=== PATIENT | female | born 1975 | race Caucasian/White ===

== ENCOUNTER → 2016-12-02 | Outpatient (CLI) | payer OTHER ==
[~2016-12-02] MED LIST: GADOBUTROL 10 ML VIAL IVP ONE
== END ==
LOC: FIMAGING 15:19
PROVIDERS: ATTEND Neurological Surgery
DX: D32.9 Benign neoplasm of meninges, unspecified (principal)
CPT/HCPCS: A9585

== ENCOUNTER → 2017-04-28 | Outpatient (CLI) | payer OTHER | LOC: CIMAGING 08:48 | PROVIDERS: ATTEND Physician Assistant Medical | DX: K82.4 Cholesterolosis of gallbladder (principal); K76.0 Fatty (change of) liver, not elsewhere classified | CPT/HCPCS: 76705-PO ==

== ENCOUNTER 2017-07-21 12:11 | Emergency (ER) | payer OTHER ==
[2017-07-21 12:18] VITALS: TEMP 98.4
--- NOTE | 2017-07-21 12:43 | CPEKG ---
Heart Rate: 68 RR Interval: 882 P-R Interval: 164 QRSD Interval: 82 QT Interval: 412 QTC Interval: 439 P Alton: 20 QRS [place]: 32 T Wave Al[place]: 5 EKG Severity - NORMAL ECG - EKG Impression: SINUS RHYTHM EKG Impression: T-wave inversions inferiorly similar to previous EKG Electronically Signed By: Young Lynn 21-Jul-2017 13:06:53
--- NOTE | 2017-07-21 13:03 | EDPHY ---
H & P Time Seen by Provider: 07/21/17 12:51 Past Medical/Surgical History: CHIEF COMPLAINT: Chest pain HISTORY OF PRESENT ILLNESS: The patient is a 42-year-old female with no significant past medical history comes to the emergency department complaining of chest tightness over her left breast for the last week. She states that it has been relatively constant however she does not always notice it when she is busy with other things. It is not associated with exertion. She denies shortness of breath but states that she occasionally remembers to take a deeper breath than usual. She did travel to [facility] 1 month ago but did not have symptoms until 1 week ago. She did also travel to [place] 2 weeks ago. No leg pain. No recent infection or illness. She is concerned because her mom had a heart attack at age 50 and then of a brain aneurysm in her 60s. Patient denies headache or back pain. She states that she does suffer from peptic ulcer disease and had been on Prilosec for some time but no longer takes it. She denies nausea vomiting. She denies diaphoresis. No lightheadedness. REVIEW OF SYSTEMS: Constitutional: denies: chills, fever, recent illness, recent injury EENTM: denies: blurred vision, double vision, nose congestion Respiratory: denies: cough, shortness of breath Cardiac: See HPI Gastrointestinal/Abdominal: denies: abdominal pain, diarrhea, nausea, vomiting, blood streaked stools Genitourinary: denies: dysuria, frequency, hematuria, pain Musculoskeletal: denies: joint pain, muscle pain Skin: denies: lesions, rash, jaundice, bruising Neurological: denies: headache, numbness, paresthesia, tingling, dizziness, weakness Hematologic/Lymphatic: denies: blood clots, easy bleeding, easy bruising Immunologic/allergic: denies: HIV/AIDS, transplant EXAM: GENERAL: Well-appearing, well-nourished and in no acute distress. HEAD: Atraumatic, normocephalic. EYES: Pupils equal round and reactive to light, extraocular movements intact, sclera anicteric, conjunctiva are normal. ENT: TMs normal, nares patent, oropharynx clear without exudates. Moist mucous membranes. NECK: Normal range of motion, supple without lymphadenopathy or JVD. LUNGS: Breath sounds clear to auscultation bilaterally and equal. No wheezes rales or rhonchi. HEART: Regular rate and rhythm without murmurs, rubs or gallops. ABDOMEN: Soft, nontender, normoactive bowel sounds. No guarding, no rebound. No masses appreciated. BACK: No CVA tenderness, no spinal tenderness, step-offs or deformities EXTREMITIES: Normal range of motion, no pitting or edema. No clubbing or cyanosis. NEUROLOGICAL: Cranial nerves II through XII grossly intact. Normal speech, normal gait. 5/5 strength, normal movement in all extremities, normal sensation PSYCH: Normal mood, normal affect. SKIN: Warm, dry, normal turgor, no visible rashes or lesions. Smoking Status: Never smoked Constitutional: Initial Vital Signs Temperature (C) 36.9 C 07/21/17 12:14 Heart Rate 84 07/21/17 12:14 Respiratory Rate 18 07/21/17 12:14 Blood Pressure 128/99 H 07/21/17 12:14 O2 Sat (%) 99 07/21/17 12:14 O2 Delivery Mode Room Air Allergies/Adverse Reactions: No Known Allergies Allergy (Unverified 09/01/13 20:06) Home Medications: Medication Instructions Recorded AZITHROMYCIN [Z-PACK] 250 mg PO DAILY 04/04/15 Ondansetron Odt [Zofran Odt] 4 mg PO Q4PRN PRN #10 tab 04/04/15 oxyCODONE/APAP 5/325 [Percocet 1 tab PO Q6 #10 tab 04/04/15 5/325] MDM/Departure - MDM Imaging Results: Imaging Impressions Chest X-Ray 07/21/17 13:01 Impression: Normal. An EKG obtained and was read and documented in trace view. Please see trace view for full reading and report. Sinus rhythm, no acute ischemic changes, T- wave inversion in lead 3 similar to 2013. Imaging: Discussed imaging studies w/ teacher physically impaired Radiologist ED Course/Re-evaluation: 2:00 p.m. we discussed the lab and imaging results. We discussed the previous EKG and how the T-wave inversion is similar. The patient is reassured with negative troponin considering her symptoms been present for a week. I did offer further testing. She declines and is eager to go home. She will follow up with her regular doctor and Cardiology for stress testing and further evaluation. We discussed indications for returning. Differential Diagnosis: Partial list of the Differential diagnosis considered include but were not limited to; acute coronary disease, PE, and although unlikely based on the history and physical exam, I also considered aneurysm, dissection, pneumothorax. I discussed these differential diagnoses and the plan with the patient as well as the usual and expected course. The patient understands that the diagnosis is provisional and that in medicine we are not always correct and that further workup is often warranted. Usual and customary warnings were given. All of the patient's questions were answered. The patient was instructed to return to the emergency department should the symptoms at all worsen or return, otherwise to followup with the physician as we discussed. - Depart Disposition: Home, Routine, Self-Care Clinical Impression: Chest pain Qualifiers: Chest pain type: unspecified Qualified Code(s): R07.9 - Chest pain, unspecified Condition: Good Instructions: Chest Pain (ED) Referrals: HEATHER LARA MD [Primary Care Provider] - As per Instructions Lefty Gan MD [Medical Doctor] - As per Instructions
[2017-07-21 13:15] LABS: % IMMATURE GRANULYOCYTES 0.3 % (0.0-1.1); ABSOLUTE IMMATURE GRANULOCYTES 0.02 10^3/uL (0.00-0.10); ADD DIFF? NO; ADD MORPH? NO; ADD SCAN? NO; ATYPICAL LYMPHOCYTE FLAG 10 (0-99); FRAGMENT RBC FLAG 0 (0-99); HEMATOCRIT 44.7 % (38.0-47.0); HEMOGLOBIN 14.8 g/dL (12.6-16.3); LEFT SHIFT FLG 0 (0-99); LIPEMIA HEMOLYSIS FLAG 80 (0-99); MEAN CELL HEMOGLOBIN 30.8 pg (27.9-34.1); MEAN CELL HEMOGLOBIN CONCENTR. 33.1 g/dL (32.4-36.7); MEAN CELL VOLUME 92.9 fL (81.5-99.8); MEAN PLATELET VOLUME 10.3 fL (8.7-11.7); PLATELET CLUMPS FLAG 0 (0-99); PLATELET COUNT 307 10^3/uL (150-400); RED BLOOD CELL COUNT 4.81 10^6/uL (4.18-5.33); RED CELL DISTRIBUTION WIDTH 12.9 % (11.5-15.2)
[2017-07-21 13:19] LABS: ALANINE AMINOTRANSFERASE 31 IU/L (9-52); ALBUMIN 4.1 g/dL (3.5-5.0); ALKALINE PHOSPHATASE 87 IU/L (38-126); ANION GAP 13 mEq/L (8-16); ASPARTATE AMINOTRANSFERASE 29 IU/L (14-46); BILIRUBIN,TOTAL 0.6 mg/dL (0.1-1.4); BILIRUBIN-CONJUGATED 0.3 mg/dL (0.0-0.5); BILIRUBIN-UNCONJUGATED 0.3 mg/dL (0.0-1.1); CARBON DIOXIDE 20 mEq/l (22-31); CHLORIDE 107 mEq/L (97-110); CREATININE 0.6 mg/dL (0.6-1.0); GLOMERULAR FILTRATION RATE > 60; GLUCOSE 114 mg/dL (70-100); POTASSIUM 4.3 mEq/L (3.5-5.2); SODIUM 140 mEq/L (134-144); SPECIMEN HEMOLYSIS 106; TOTAL PROTEIN 7.3 g/dL (6.3-8.2)
[2017-07-21 13:25] LABS: INR 0.9 (0.83-1.16)
[2017-07-21 13:26] LABS: APTT 28.1 SEC (23.0-38.0)
[2017-07-21 13:30] LABS: TROPONIN I < 0.012 ng/mL (0.000-0.034)
[2017-07-21 14:23] VITALS: BP 110/80; PULSE 74; RESP 17; O2SAT 94
== END 2017-07-21 14:26 | disposition home or self-care (01) ==
DX: R07.9 Chest pain, unspecified (principal)

== ENCOUNTER → 2018-12-16 | Outpatient (CLI) | payer OTHER | LOC: FIMAGING 06:57 | PROVIDERS: ATTEND Physician Assistant | DX: D32.0 Benign neoplasm of cerebral meninges (principal) | CPT/HCPCS: 70551-PN; A9585 ==

== ENCOUNTER → 2018-12-18 | Outpatient (CLI) | payer OTHER | LOC: FIMAGING 14:13 | PROVIDERS: ATTEND Family Medicine | DX: N64.4 Mastodynia (principal) ==